=== PATIENT | female | born 1970 | race American Indian/Alaskan Native ===

== ENCOUNTER 2018-02-12 17:07 | Emergency (ER) | payer SELFPAY ==
[2018-02-12 18:08] LABS: Bilirubin,Urine NEG (Negative); Blood,Urine NEG (Negative); Calcium Oxalate Crystals,Urine 3+; Color,Urine Yellow (Yellow); Urobilinogen,Urine < 2.0 mg/dL (<2.0)
[2018-02-12 18:09] LABS: HCG Qualitative,Urine Negative (Negative)
[2018-02-13] MEDS ORDERED: CATAPRES PO ONE (00:05)
--- NOTE | 2018-02-13 00:15 | Emergency Department Report ---
HPI - General Chief Complaint: High BP Time Seen by Provider: 02/12/18 23:54 - HPI HPI: Room 4 The patient is a 47-year-old female presented with a chief complaint of hypertension. The patient states for approximately one week she has noticed her blood pressure elevated with systolics ranging from 170s-180s. The patient states she's also had a slight headache for the past week and gives it a score of 5/10. Patient denies nausea/vomiting or chest pain. Location: [See above] Duration: One week Quality:, Hypertension, headache Severity: 5/10 Modifying factors: [see above] Context: [see above] Mode of transportation: [not driving] ED Past Medical Hx - Past Medical History Previous Medical History?: Yes Hx Hypertension: Yes - Surgical History Past Surgical History?: No - Family History Family history: no significant - Social History Smoking Status: Never Smoker Substance Use Type: None (denies illicit drug use) - Medications Home Medications: Home Medications Medication Instructions Recorded Confirmed Last Taken Type amLODIPine [Norvasc] 5 mg PO DAILY #90 tab 02/13/18 Unknown Rx ED Review of Systems ROS: Stated complaint: HIGH BLOOD PRESSURE Other details as noted in HPI Cardiovascular: denies: chest pain Gastrointestinal: denies: nausea, vomiting Neurological: headache Physical Exam - Physical Exam Vital Signs: Vital Signs 02/12/18 17:33 Temperature 97.3 F L Pulse Rate 87 Respiratory 18 Rate Blood Pressure 211/116 O2 Sat by Pulse 99 Oximetry Vital Signs 02/12/18 02/13/18 02/13/18 17:33 00:00 00:15 Temperature 97.3 F L Pulse Rate 87 Respiratory 18 Rate Blood Pressure 211/116 188/101 187/100 O2 Sat by Pulse 99 Oximetry 02/13/18 02/13/18 02/13/18 00:30 01:03 01:16 Temperature Pulse Rate Respiratory Rate Blood Pressure 178/103 125/97 115/86 O2 Sat by Pulse Oximetry 02/13/18 02/13/18 01:30 01:45 Temperature Pulse Rate Respiratory Rate Blood Pressure 161/88 134/86 O2 Sat by Pulse Oximetry Physical Exam: GENERAL: The patient is well-developed well-nourished female lying on stretcher not appearing to be in acute distress. [] HEENT: Normocephalic. Atraumatic. Extraocular motions are intact. Patient has moist mucous membranes. NECK: Supple. Trachea midline CHEST/LUNGS: Clear to auscultation. There is no respiratory distress noted. HEART/CARDIOVASCULAR: Regular. There is no tachycardia. There is no gallop rub or murmur. ABDOMEN: Abdomen is soft, nontender. Patient has normal bowel sounds. There is no abdominal distention. SKIN: There is no rash. There is no edema. There is no diaphoresis. NEURO: The patient is awake, alert, and oriented. The patient is cooperative. The patient has no focal neurologic deficits. The patient has normal speech. Cranial nerve There is no evidence of acute injury. ED Course Vital Signs 02/12/18 17:33 Temperature 97.3 F L Pulse Rate 87 Respiratory 18 Rate Blood Pressure 211/116 O2 Sat by Pulse 99 Oximetry ED Medical Decision Making - EKG Data -: EKG Interpreted by Co EKG shows normal: sinus rhythm Rate: normal - EKG Data When compared to previous EKG there are: previous EKG unavailable Interpretation: other (no ischemic changes seen) - Radiology Data Radiology results: report reviewed (CT head), image reviewed (CT head) [address] [address] Cat Scan Report Signed Patient: AALIYAH VANCE MR#: [id number] : 1970 Acct:[id number] Age/Sex: 47 / F ADM Date: 02/12/18 Loc: ED Attending Dr: Ordering Physician: TRINH ALLEN MD Date of Service: 02/13/18 Procedure(s): CT head/brain wo con Accession Number(s): [id number] cc: TRINH ALLEN MD FINAL REPORT EXAM: CT HEAD/BRAIN WO CON HISTORY: hypertension, headache COMPARISON: None available. TECHNIQUE: Axial images obtained skull base through vertex. FINDINGS: No acute intracranial hemorrhage, midline shift or pathologic extra axial fluid collection. Ventricles and cisterns are normal in size and configuration for the patient's age. Davila-white differentiation preserved. Calvarium grossly intact. Ocular globes are grossly unremarkable. Mild mucosal thickening ethmoid air cells. Mastoid air cells are clear. IMPRESSION: No grossly acute intracranial abnormality. Transcribed By: LMA Dictated By: GEOVANY DALLAS MD Electronically Authenticated By: GEOVANY DALLAS MD Signed Date/Time: 02/13/18156 DD/ 6 TD/TT: 02/13/18156 - Differential Diagnosis ICH, uncontrolled hypertension, hypertensive urgency Critical care attestation.: If time is entered above; I have spent that time in minutes in the direct care of this critically ill patient, excluding procedure time. ED Disposition Clinical Impression: Hypertension, Headache Disposition: - TO HOME OR SELFCARE Is pt being admited?: No Does the pt Need Aspirin: No Condition: Stable Instructions: Hypertension (ED) Additional Instructions: Return to the emergency department immediately should you develop worsening symptoms, fever, inability to tolerate food or liquid or any other concerns. Prescriptions: amLODIPine [Norvasc] 5 mg PO DAILY #90 tab Referrals: [facility] [Outside] - [facility] (Please follow up here for further evaluation and management of your high blood pressure) Time of Disposition: 02:04
--- NOTE | 2018-02-13 02:02 | Cat Scan Report ---
FINAL REPORT EXAM: CT HEAD/BRAIN WO CON HISTORY: hypertension, headache COMPARISON: None available. TECHNIQUE: Axial images obtained skull base through vertex. FINDINGS: No acute intracranial hemorrhage, midline shift or pathologic extra axial fluid collection. Ventricles and cisterns are normal in size and configuration for the patient's age. Davila-white differentiation preserved. Calvarium grossly intact. Ocular globes are grossly unremarkable. Mild mucosal thickening ethmoid air cells. Mastoid air cells are clear. IMPRESSION: No grossly acute intracranial abnormality.
[2018-02-13 03:38] VITALS: BP 128/80
== END 2018-02-13 02:50 | disposition home or self-care (01) ==
LOC: ED 17:07
DX: I10 Essential (primary) hypertension (principal); R51 Headache
CPT/HCPCS: 70450; 81001; 81025; 93005; 93010; 99283